=== PATIENT | female | born 1955 | race Caucasian/White ===

== ENCOUNTER 2019-04-23 18:51 | Emergency (ER) | payer OTHER ==
[~2019-04-23] VITALS: Ht 154.9 cm; Wt 64.4 kg
--- NOTE | 2019-04-23 19:19 | NUR ---
patient came from home. Chief complaint of right eye discomfort since tuesday04/21/19. patient states pain that rates at a 5 on a scale of 0/10. patient denies any vision loss, pus, fever, chills or any other symptoms.
--- NOTE | 2019-04-23 19:22 | NUR ---
Dr. Camejo at bedside for evaluation.
[2019-04-23] MEDS ORDERED: FLUORESCEIN SODIUM 1 MG STRIP ONE (19:28)
[2019-04-23] MEDS ORDERED: TETRACAINE HCL 0.5% OPHT DROP 2 ML BOTTLE ONE (19:28)
[2019-04-23] MEDS ORDERED: FLUORESCEIN SODIUM 1 MG STRIP OP ONE (19:30)
[2019-04-23] MEDS ORDERED: TETRACAINE HCL 0.5% OPHT DROP 2 ML BOTTLE OP ONE (19:30)
--- NOTE | 2019-04-23 19:58 | NUR ---
Patient discharged to home in stable conditon. Written and verbal after care instructions given. Patient verbalizes understanding of instructions. patient alert and oriented x4. patient self ambulatory with steady gait. Exit care package and personal belonings taken home with the patient at discharge. Patient denies any pain/discomfort at this time. Education provided prior to discharge.
[2019-04-23 20:04] VITALS: BP 102/83
== END 2019-04-23 19:56 | disposition home or self-care (01) ==
LOC: ER 18:51
DX: H00.012 Hordeolum externum right lower eyelid (principal); H00.032 Abscess of right lower eyelid; E03.9 Hypothyroidism, unspecified
CPT/HCPCS: A4663

== ENCOUNTER 2020-09-30 18:11 | Emergency (ER) | payer OTHER ==
[~2020-09-30] VITALS: Ht 154.9 cm; Wt 56.7 kg
[2020-09-30] MEDS ORDERED: AMOXicillin 250 MG CAPSULE PO ONE (19:00)
[2020-09-30] MEDS ORDERED: AMOXicillin 250 MG CAPSULE ONE (19:17)
[2020-09-30] MEDS ORDERED: AMOX500T2 PO (19:21)
--- NOTE | 2020-09-30 19:26 | NUR ---
Patient discharged to home in stable condition. Written and verbal after care instructions given. Patient verbalizes understanding of instructions. Stressed follow up or return to ER for worsening s/s.
== END 2020-09-30 19:26 | disposition home or self-care (01) ==
LOC: ER 18:13
DX: K08.89 Other specified disorders of teeth and supporting structures (principal); E03.9 Hypothyroidism, unspecified; M85.80 Other specified disorders of bone density and structure, unspecified site
CPT/HCPCS: A4663